=== PATIENT | male | born 1940 | race Caucasian/White ===

== ENCOUNTER 2025-04-21 21:43 | Inpatient (IN) | payer MEDICARE, OTHER, SELFPAY ==
[2025-04-21] VITALS (8 sets, daily range): BP systolic 112–159; BP diastolic 72–99; BMI 21.6
--- NOTE | 2025-04-21 17:04 | ED.GENMED ---
History of Present Illness
<Fili Light PA-C - Last Filed: 04/21/25 21:28>
General
Chief Complaint: Fall
Source: patient
Exam Limitations: none
Time Seen by Provider: 04/21/25 16:59
History of Present Illness
History of Present Illness:
83-year-old male with history of dementia presents via EMS from assisted living at [facility] after multiple falls recently. Report from ambulance states that there is concern on family's behalf he was not receiving appropriate
level of care. Patient cannot provide any valuable history given his dementia.
Phy Exam
<Fili Light PA-C - Last Filed: 04/21/25 21:28>
Physical Exam
Physical Exam:
General: Unkempt male no acute respiratory distress
HEENT normal cephalic no obvious scalp abrasion or hematoma
Heart: Regular rate and rhythm
Lungs: Clear no wheeze
Neurologic exam: Alert oriented to person only no facial asymmetry no obvious unilateral deficit
Musculoskeletal exam: The spine is nontender. There is a contusion noted to the lateral right hip without obvious deformity. He is tender to the right hip.
Skin is intact
Abdomen is soft nontender
Course
<ABIGAIL Jarvis Last Filed: 04/21/25 21:28>
Orders/Labs/Results
Orders:
Orders
04/21/25 17:04
CT Head W/o Iv Contrast Urgent
Comment:
Reason For Exam: falls
CR Hip - RT w/wo Pel 2-3 Vw* Urgent
Comment:
Reason For Exam: fall
Include a pelvis x-ray?: Yes
04/21/25 17:12
Complete Blood Count/With Diff Urgent
Comprehensive Metabolic Panel Urgent
04/21/25 17:13
Urinalysis Reflex To Culture Urgent
Date Specimen was Collected: 04/21/25
Time Specimen was Collected: 17:13
Urine Microscopic Reflex Cult Urgent
Urine Culture Urgent
RUY Source: U
Specimen Description:
Date Specimen was Collected: 04/21/25
Time Specimen was Collected: 17:13
04/21/25 17:53
CT Abd/pel Without Iv Or Oral Urgent
Comment:
Reason For Exam: sal, weakness
04/21/25 17:54
Electrocardiogram (*1) Urgent
Reason for Study: Fatigue / Weakness
EKG- Treatment ONCE
0.9% Sodium Chloride 1000 ml [Nss] 1,000 ml IV BOLUS
04/21/25 18:01
Calcium Gluconate 1,000 mg IV NOW STA
04/21/25 18:13
Sodium Zirconium Cyclosilicate [Lokelma] 10 gram PO NOW STA
04/21/25 19:21
CefTRIAXone [Rocephin] 1,000 mg IV NOW STA
04/21/25 19:41
Sterile Water [Sterile Water For Injection] 10 ml .ROUTE .[facility]-MED ONE
Abnormal Lab Results
04/21/25 04/21/25
17:12 17:13
RBC 4.14 L 10^6/uL
(4.70-6.10)
Hgb 12.3 L g/dL
(13.0-18.0)
MCV 98.3 H fL
(80.0-94.0)
MCHC 30.2 L g/dL
(33.0-37.0)
RDW 15.8 H %
(11.5-14.5)
MPV 10.9 H fL
(7.4-10.4)
Sodium 156 H mmol/L
(135-145)
Potassium 6.4 H* mmol/L
(3.5-5.1)
Chloride 123 H mmol/L
(98-107)
BUN 41 H mg/dl
(9-20)
Creatinine 3.4 H mg/dL
(0.7-1.3)
Glucose 115 H mg/dl
(70-99)
Calcium 10.3 H mg/dl
(8.4-10.2)
Alkaline Phosphatase 127 H U/L
(38-126)
Ur Occult Blood Reflex 3+ A
(Negative)
Leukocyte Esterase Rfl 3+ A
(Negative)
Urine RBC 7-10 A /HPF
(0-2)
Urine WBC (Reflex) >100 A /HPF
(0-5)
Urine Bacteria (Reflex) Many A
(Negative)
Urine Albumin (Reflex) 2+ A
(Neg - Trace)
04/21/25 17:12
04/21/25 17:12
Vital Signs
Initial and Last Documented VS:
Initial Vital Signs
Temp Pulse Resp BP Pulse Ox
97.8 F 77 18 143/86 99
04/21/25 16:46 04/21/25 16:46 04/21/25 16:46 04/21/25 16:46 04/21/25 16:46
Last Documented Vital Signs
Temp Pulse Resp BP Pulse Ox
97.7 F 95 21 139/99 98
04/21/25 19:12 04/21/25 21:11 04/21/25 21:11 04/21/25 21:10 04/21/25 18:00
<Emigdio Garcia, DO - Last Filed: 04/21/25 18:47>
Orders/Labs/Results
Orders:
Orders
04/21/25 17:04
CT Head W/o Iv Contrast Urgent
Comment:
Reason For Exam: falls
CR Hip - RT w/wo Pel 2-3 Vw* Urgent
Comment:
Reason For Exam: fall
Include a pelvis x-ray?: Yes
04/21/25 17:12
Complete Blood Count/With Diff Urgent
Comprehensive Metabolic Panel Urgent
04/21/25 17:13
Urinalysis Reflex To Culture Urgent
Date Specimen was Collected: 04/21/25
Time Specimen was Collected: 17:13
Urine Microscopic Reflex Cult Urgent
Urine Culture Urgent
RUY Source: U
Specimen Description:
Date Specimen was Collected: 04/21/25
Time Specimen was Collected: 17:13
04/21/25 17:53
CT Abd/pel Without Iv Or Oral Urgent
Comment:
Reason For Exam: sal, weakness
04/21/25 17:54
Electrocardiogram (*1) Urgent
Reason for Study: Fatigue / Weakness
EKG- Treatment ONCE
0.9% Sodium Chloride 1000 ml [Nss] 1,000 ml IV BOLUS
04/21/25 18:01
Calcium Gluconate 1,000 mg IV NOW STA
04/21/25 18:13
Sodium Zirconium Cyclosilicate [Lokelma] 10 gram PO NOW STA
04/21/25 19:21
CefTRIAXone [Rocephin] 1,000 mg IV NOW STA
04/21/25 19:41
Sterile Water [Sterile Water For Injection] 10 ml .ROUTE .[facility]
Abnormal Lab Results
04/21/25 04/21/25
17:12 17:13
RBC 4.14 L 10^6/uL
(4.70-6.10)
Hgb 12.3 L g/dL
(13.0-18.0)
MCV 98.3 H fL
(80.0-94.0)
MCHC 30.2 L g/dL
(33.0-37.0)
RDW 15.8 H %
(11.5-14.5)
MPV 10.9 H fL
(7.4-10.4)
Sodium 156 H mmol/L
(135-145)
Potassium 6.4 H* mmol/L
(3.5-5.1)
Chloride 123 H mmol/L
(98-107)
BUN 41 H mg/dl
(9-20)
Creatinine 3.4 H mg/dL
(0.7-1.3)
Glucose 115 H mg/dl
(70-99)
Calcium 10.3 H mg/dl
(8.4-10.2)
Alkaline Phosphatase 127 H U/L
(38-126)
Ur Occult Blood Reflex 3+ A
(Negative)
Leukocyte Esterase Rfl 3+ A
(Negative)
Urine RBC 7-10 A /HPF
(0-2)
Urine WBC (Reflex) >100 A /HPF
(0-5)
Urine Bacteria (Reflex) Many A
(Negative)
Urine Albumin (Reflex) 2+ A
(Neg - Trace)
04/21/25 17:12
04/21/25 17:12
Vital Signs
Initial and Last Documented VS:
Initial Vital Signs
Temp Pulse Resp BP Pulse Ox
97.8 F 77 18 143/86 99
04/21/25 16:46 04/21/25 16:46 04/21/25 16:46 04/21/25 16:46 04/21/25 16:46
Last Documented Vital Signs
Temp Pulse Resp BP Pulse Ox
97.7 F 95 21 139/99 98
04/21/25 19:12 04/21/25 21:11 04/21/25 21:11 04/21/25 21:10 04/21/25 18:00
<Fili Light PA-C - Last Filed: 04/21/25 21:28>
MDM/Problems Addressed
Differential Diagnosis Includes:
Patient with weakness and falls. Question general decline versus underlying infectious source such as UTI versus fracture from the falls or head injuries. CT of the head ordered. X-ray of right hip ordered will check labs and urinalysis
<Fili Light PA-C - Last Filed: 04/21/25 21:28>
*Pulse Oximetry
SaO2: 99
Oxygen Mode of Delivery: Room air
Patient hypoxic: no
*Critical Care Note
Total Time (30-74mins, 75-104mins- exclusive of procedures): Not Applicable
<Fili Light PA-C - Last Filed: 04/21/25 21:28>
Update Note
Update Note:
Workup shows multiple metabolic abnormalities including hyponatremia, hyperkalemia and acute kidney injury. I suspect patient is volume depleted and acute kidney injury could be prerenal. CT of the abdomen shows cystitis but no signs of
obstructive uropathy. CT of the head was negative. Fluids ordered. Urinalysis consistent with UTI, Rocephin ordered. Calcium and Lokelma ordered for hyperkalemia. Discussed with emergency room attending. Admit to hospital
ED Attending Note
<Fili Light PA-C - Last Filed: 04/21/25 21:28>
-
Portions of this chart may have been created with voice recognition software.� Occasional wrong word or��sound alike� substitutions may have occurred due to the inherent limitations of voice recognition software.
<Emigdio Garcia DO - Last Filed: 04/21/25 18:47>
ED Attending Note
Patient seen and examined by attending physician: Yes
I performed the substantive portion of visit, reviewed & personally made and approve the management plan that is documented in note by myself or FARIBA.: Yes
I performed a history and physical exam of patient and discussed management with resident, I reviewed resident's note and agree with documented findings and plan of care.: Yes
ED Attending Note:
84-year-old male brought to the ER by EMS for evaluation after frequent falls in his long-term care facility. Patient is pleasantly confused and unable to provide any relevant history. Vital signs reviewed, head is normocephalic atraumatic, mucous
membranes dry, moving all extremities symmetrically without focal deficit, abdomen is soft and nontender, GCS is 14 due to confusion. Nurses obtain straight cath urine sample and reported that he only had 100 cc in his bladder. IV fluids ordered.
IV calcium ordered given reported potassium on labs. Awaiting CT scan for admission for further care and treatment of SAL with severe dehydration
Discharge Plan
Departure
Patient Disposition: Admit
Date of Disposition: 04/21/25
Time of Disposition: 21:23
Presentation/result/management discussed w/ accepting MD/DO: Hospitalist
Patient with high blood pressure during this ER visit?: No
Discharge Problem:
Acute UTI, Acute hyperkalemia, SAL (acute kidney injury)
Prescriptions:
No Action
quetiapine 25 mg tablet
25 mg PO TID
buspirone 5 mg tablet
5 mg PO BID
acetaminophen 325 mg tablet
650 mg PO Q6HPRN PRN (Reason: fever)
ammonium lactate 12 % lotion
1 applic TOPICAL BID
Rx Instructions:
B/L arms and legs
loperamide 2 mg capsule
2 mg PO TID
sodium bicarbonate 325 mg tablet
325 mg PO BID
calcium carbonate 600 mg calcium (1,500 mg) tablet
600 mg PO BID
tamsulosin 0.4 mg capsule
0.4 mg PO DAILY
ferrous sulfate [FeroSul] 325 mg (65 mg iron) tablet
325 mg PO DAILY
sertraline 50 mg tablet
50 mg PO DAILY
metoprolol tartrate 25 mg tablet
25 mg PO BID
Visbiome 112.5 billion cell Capsule
1 cap PO DAILY
melatonin 5 mg Tablet
5 mg PO HS
Referrals:
Estephanie Aguilera DO [Family Provider, Family Practice]
Interventions
Interventions:
*Risk Screen - Suicide Last Done: 04/21/25 16:46
*General Assessment Last Done: 04/21/25 16:46
*Neglect/Abuse Screening Last Done: 04/21/25 16:46
*ED- Fall Risk Assessment Last Done: 04/21/25 16:46
*ED COVID-19 Vaccine History Last Done: 04/21/25 16:46
*ED Influenza Vaccine History Last Done: 04/21/25 16:46
ED-Musculoskeletal Assessment Last Done: 04/21/25 17:41
ED- Neurological Assessment Last Done: 04/21/25 19:12
ED-Skin Assessment Last Done: 04/21/25 19:12
Discharge Date and Time
Print Language: SAMMARINESE
[2025-04-21 17:23] LABS: Hematocrit 40.7 % (39.0-52.0); Hemoglobin 12.3 g/dL (13.0-18.0); Mean Corp Hgb Conc. 30.2 g/dL (33.0-37.0); Mean Corpuscular Volume 98.3 fL (80.0-94.0); Nucleated Red Blood Cells % 0 % (-); Platelet Count 263 10^3/uL (130-400); Red Cell Dist. Width 15.8 % (11.5-14.5)
[2025-04-21 17:38] LABS: Urine Character Cloudy (Clear)
[2025-04-21 17:49] LABS: ALT (SGPT) 23 U/L (0-50); AST (SGOT) 27 U/L (17-59); Albumin 3.8 g/dl (3.5-5.0); Alkaline Phosphatase 127 U/L (38-126); Blood Urea Nitrogen 41 mg/dl (9-20); Calcium 10.3 mg/dl (8.4-10.2); Carbon Dioxide 30 mmol/L (22-30); Chloride 123 mmol/L (98-107); Estimated Creatinine Clearance 14 ml/min; Glucose 115 mg/dl (70-99); Potassium 6.4 mmol/L (3.5-5.1); Sodium 156 mmol/L (135-145); Total Protein 7.3 g/dl (6.3-8.2); eGFR 17.09
[2025-04-21] MEDS: CALCIUM GLUCONATE 1000 MG IV (18:16)
[2025-04-21] MEDS: NSS 1000 IV (18:16)
[2025-04-21 18:29] LABS: Urine Squamous Cell 0-2 /LPF (Few); Urine White Cell >100 /HPF (0-5)
[2025-04-21] MEDS: LOKELMA 10 GRAM PO (18:31)
[2025-04-21] MEDS: ROCEPHIN 1000 MG IV (19:44)
--- NOTE | 2025-04-21 21:41 | HPS.HSE ---
Addendum entered and electronically signed by Kenzie Reyna MD 04/21/25 23:13:
HPI
84-year-old male past medical history of Alzheimer's dementia, anxiety, hypertension, suspected CKD anemia of chronic disease, presenting from assisted living at [place] in [facility] after multiple falls recently. There is concern from family
that he was not receiving appropriate level of care. History cannot be obtained from patient due to dementia. He denies pain.
Addendum entered and electronically signed by Kenzie Reyna MD 04/21/25 22:25:
Repeat BMP shows Sodium of 156 again so changed fluids to 1/2 NS.
Addendum entered and electronically signed by Kenzie Reyna MD 04/21/25 21:46:
EKG shows QTc of 579. Hold Seroquel, buspirone, sertraline. Recheck EKG in the morning.
Original Note:
Family Physician
-
Family Physician: Estephanie Aguilera
Chief Complaint
-
falls
History of Present Illness
Allergies
Allergy/AdvReac Type Severity Reaction Status Date / Time
No Known Allergies Allergy Unverified 04/21/25 18:08
Home Medications
Lactobac no.2-Bifidobac no.1-S. thermo 112.5 billion cell capsule (Visbiome) 1 cap PO DAILY 04/21/25
acetaminophen 325 mg tablet 650 mg PO Q6HPRN PRN fever 04/21/25
ammonium lactate 12 % lotion 1 applic topical BID dry skin 04/21/25
buspirone 5 mg tablet 5 mg PO BID 04/21/25
calcium carbonate 600 mg PO BID 04/21/25
ferrous sulfate 325 mg (65 mg iron) tablet (FeroSul) 325 mg PO DAILY 04/21/25
loperamide 2 mg capsule 2 mg PO TID 04/21/25
melatonin 5 mg tablet 5 mg PO HS 04/21/25
metoprolol tartrate 25 mg tablet 25 mg PO BID 04/21/25
quetiapine 25 mg tablet 25 mg PO TID 04/21/25
sertraline 50 mg tablet 50 mg PO DAILY 04/21/25
sodium bicarbonate 325 mg tablet 325 mg PO BID 04/21/25
tamsulosin 0.4 mg capsule 0.4 mg PO DAILY 04/21/25
Medical History
Past Medical History
Past Medical History: Reports Other (84-year-old male past medical history of Alzheimer's dementia, anxiety, hypertension, suspected CKD anemia of chronic disease, presenting from assisted living at [place] in [facility] after multiple falls
recently. There is concern from family that he was not receiving appropriate level of care)
Past Surgical History: Reports None
Social History
Unable to obtain full social history at this time due to: Dementia
Family History
Family History: Not pertinent
Allergies / Home Medications
Allergies reflects when Allergies were last updated in [employer].
Home Medications with original date entered in [employer]
Allergy/Medication List:
Allergies
Allergy/AdvReac Type Severity Reaction Status Date / Time
No Known Allergies Allergy Unverified 04/21/25 18:08
Home Medications
Lactobac no.2-Bifidobac no.1-S. thermo 112.5 billion cell capsule (Visbiome) 1 cap PO DAILY 04/21/25
acetaminophen 325 mg tablet 650 mg PO Q6HPRN PRN fever 04/21/25
ammonium lactate 12 % lotion 1 applic topical BID dry skin 04/21/25
buspirone 5 mg tablet 5 mg PO BID 04/21/25
calcium carbonate 600 mg PO BID 04/21/25
ferrous sulfate 325 mg (65 mg iron) tablet (FeroSul) 325 mg PO DAILY 04/21/25
loperamide 2 mg capsule 2 mg PO TID 04/21/25
melatonin 5 mg tablet 5 mg PO HS 04/21/25
metoprolol tartrate 25 mg tablet 25 mg PO BID 04/21/25
quetiapine 25 mg tablet 25 mg PO TID 04/21/25
sertraline 50 mg tablet 50 mg PO DAILY 04/21/25
sodium bicarbonate 325 mg tablet 325 mg PO BID 04/21/25
tamsulosin 0.4 mg capsule 0.4 mg PO DAILY 04/21/25
Review of Systems
-
History Source: Patient
A 12 point ROS was completed and negative except as noted: No
Physical Exam
Vital Signs
Vital Signs
Temp Pulse Resp BP Pulse Ox
97.7 F 95 21 139/99 98
04/21/25 19:12 04/21/25 21:11 04/21/25 21:11 04/21/25 21:10 04/21/25 18:00
Physical Exam
General: Well Developed, Well Nourished and No Apparent Distress
HEENT: NormoCephalic, Moist mucous membranes and Atraumatic
Respiratory: Clear
Cardiac: S1/S2 and Regular Rhythm; No Murmur or Rub
GI: Soft, Non Tender, Non Distended and Normal Bowel Sounds; No Organomegaly
Rectal: Deferred by Provider
Musculoskeletal: No Clubbing, No Cyanosis and No Edema
Skin: No Rash
Neuro: Nonfocal/grossly intact
Laboratory Results
-
04/21/25 17:12
Laboratory Results
Total Bilirubin 0.6 mg/dl (0.2-1.3) 04/21/25 17:12
AST 27 U/L (17-59) 04/21/25 17:12
ALT 23 U/L (0-50) 04/21/25 17:12
Alkaline Phosphatase 127 U/L (38-126) H 04/21/25 17:12
Data Reviewed
-
Lab Data: Labs Reviewed by me
Old Records: Reviewed
Impression/Plan
-
IMPRESSION:
PLAN:
# DEEDEE likely prerenal on suspected CKD
# Severe hyperkalemia
-EKG shows no abnormalities
-CT head preliminary report shows no acute abnormality
-CT abdomen pelvis preliminary radiology report shows urinary bladder wall thickening, bilateral perinephric inflammatory changes, no obstructive urolithiasis, multiple calcified gallstone
- IV fluids
- Calcium gluconate, Lokelma given
-Recheck BMP
- Continue sodium bicarb
- Bladder scan protocol
# Hypernatremia secondary to hypovolemia
-IV fluids with normal saline for now
# Mild hypercalcemia secondary to hypovolemia
- IV fluids
# Urinary tract infection
-Urinalysis strongly suggesting infection
- Ceftriaxone
# Ambulatory dysfunction/multiple falls
# Right hip tenderness
- Hip x-ray due to right hip tenderness and CT head pending
Dementia
- Continue sertraline, Seroquel, buspirone
Anxiety
- Continue sertraline, Seroquel
Essential hypertension
- Continue metoprolol
BPH
- Continue tamsulosin
Full code
DVT prophylaxis�heparin
Regular diet
[2025-04-21 22:14] LABS: Blood Urea Nitrogen 40 mg/dl (9-20); Calcium 9.9 mg/dl (8.4-10.2); Carbon Dioxide 27 mmol/L (22-30); Chloride 125 mmol/L (98-107); Estimated Creatinine Clearance 16 ml/min; Glucose 109 mg/dl (70-99); Potassium 5.4 mmol/L (3.5-5.1); Sodium 156 mmol/L (135-145); eGFR 19.86
[2025-04-22] VITALS (7 sets, daily range): BP systolic 105–149; BP diastolic 54–86; BMI 18.8
--- NOTE | 2025-04-22 00:30 | PTCARENOTE ---
Pt. admitted from E.D., awake, alert, confused, combative, vs stable, NSR on monitor, bed alarm intact, call rivera within reach.
[2025-04-22] MEDS: 0.45%NACL 1000 IV ×3 (00:33→21:11)
[2025-04-22] MEDS: FLUSH (NSS) 1 FLUSH IV (00:33)
[2025-04-22] MEDS: IMODIUM PO ×2 (01:37→18:15)
[2025-04-22] MEDS: MELATONIN PO (01:37)
[2025-04-22] MEDS: MELATONIN 5 MG PO ×2 (02:48→21:14)
--- NOTE | 2025-04-22 06:00 | PTCARENOTE ---
Staff attempted to do EKG on pt, pt. was combative, kicking and scratching staff, unsuccessful with attempt.
[2025-04-22] MEDS: LAC HYDRIN, AM LACTIN LOTION 1 APPLIC TOPICAL ×2 (08:52→21:12)
[2025-04-22] MEDS: HEPARIN 5000 UNITS SC ×2 (08:54→21:11)
[2025-04-22] MEDS: IMODIUM 2 MG PO ×2 (08:55→21:14)
[2025-04-22] MEDS: FEOSOL 325 MG PO (08:55)
[2025-04-22] MEDS: FLOMAX 0.4 MG PO (08:55)
[2025-04-22] MEDS: LOPRESSOR 25 MG PO ×2 (08:55→21:13)
[2025-04-22] MEDS: VISBIOME 1 CAP PO (08:55)
[2025-04-22] MEDS: OSCAL CAL 500 500 MG PO ×2 (08:55→21:13)
[2025-04-22] MEDS: SODIUM BICARBONATE 325 MG PO ×2 (08:56→21:14)
[2025-04-22 09:07] LABS: Hematocrit 39.6 % (39.0-52.0); Hemoglobin 11.8 g/dL (13.0-18.0); Mean Corp Hgb Conc. 29.8 g/dL (33.0-37.0); Mean Corpuscular Volume 100.3 fL (80.0-94.0); Nucleated Red Blood Cells % 0 % (-); Platelet Count 228 10^3/uL (130-400); Red Cell Dist. Width 15.5 % (11.5-14.5)
[2025-04-22 09:41] LABS: ALT (SGPT) 20 U/L (0-50); AST (SGOT) 24 U/L (17-59); Albumin 3.2 g/dl (3.5-5.0); Alkaline Phosphatase 113 U/L (38-126); Blood Urea Nitrogen 37 mg/dl (9-20); Calcium 9.4 mg/dl (8.4-10.2); Carbon Dioxide 26 mmol/L (22-30); Chloride 125 mmol/L (98-107); Estimated Creatinine Clearance 15 ml/min; Glucose 99 mg/dl (70-99); Potassium 4.9 mmol/L (3.5-5.1); Sodium 157 mmol/L (135-145); Total Protein 6.5 g/dl (6.3-8.2); eGFR 19.09
--- NOTE | 2025-04-22 09:41 | W.PN.HOSP.TC ---
Addendum entered and electronically signed by Derrick Mota MD 04/22/25 14:29:
Acute urinary retention -bladder scan reported to be 515ml, straight cath for 400 mL. Harris catheter order placed.
Addendum entered and electronically signed by Derrick Mota MD 04/22/25 14:18:
I saw and evaluated the patient. I reviewed the resident�s note and agree with findings and plan as documented in the resident�s note.
1. Acute kidney injury -baseline unknown. Creatinine of 3. Likely prerenal as patient volume depletion. CT abdomen pelvis showing bladder wall thickening/trabeculation with question of bladder outlet obstruction. Bladder scan and straight cath
protocol ordered. Discussed with RN for a random bladder scan to rule out any ongoing active urinary retention. Avoid nephrotoxic medication as possible.
2. Hypernatremia -secondary to decreased oral intake with dementia. Currently on 0.45% NS at rate of 100 mL/h, sodium did not improve overnight. Increase rate to 150 mL/h. Follow-up sodium in evening
3. Hyperkalemia -secondary to DEEDEE/acidosis related. Admission potassium 6.4. Came down to 4.9 today. Improved.
4. UTI/pyelonephritis -UA showing significant pyuria bacteriuria. Urine culture pending. No leukocytosis patient afebrile. CT abdomen pelvis questioning bilateral perinephric fat stranding, possible pyelonephritis. Currently on Rocephin continue
5. Acute metabolic encephalopathy -likely from hypernatremia. UTI possibly causing some encephalopathy as well, although if patient mentation improved rapidly after correction of hypernatremia UTI becomes less likely a causative agent.
Total time spent : 55 mins
Original Note:
Today's Communication/Plan
-
Half normal saline at increased rate 1 550 mL/h, since serum sodium has not decreased yet.
Urine culture pending
Bladder scan pending
Assessment / Plan
Assessment / Plan
IMPRESSION:
Mr. Peña Fontanez is a 84-year-old male with PMH notable for Alzheimer's dementia, anxiety, hypertension, suspected CKD, anemia of chronic disease, who presented from [facility] after multiple falls recently. Family was
concerned that he was not receiving appropriate level of care. History cannot be obtained from patient due to dementia. He denies pain.
CT abdomen pelvis noncontrast:
Urinary bladder is distended. Diffusely thickened and trabeculated wall. This would suggest bladder outlet obstruction and/or cystitis.
Stranding of the perinephric fat bilaterally, nonspecific but raising the possibility of ascending urinary tract infection. Bilateral cystic renal masses, probably benign cystic masses.
Mild dilation of the distal ureters bilaterally. Mild dilation of the left renal pelvis and calyces. No evidence for ureteral calculus.
Thickening of the wall the rectum with stranding of the perirectal fat, findings suggestive of proctitis, possibly stercoral proctitis. No evidence for perforation. No evidence for bowel obstruction or free intraperitoneal air.
Cholelithiasis. No CT findings to suggest acute cholecystitis.
Mild dilation of the right common iliac artery, with diameter of 15.2 mm.
Examination limited by motion artifact, especially involving the lower chest and upper abdomen. Bony degenerative changes as described.
PLAN:
# DEEDEE�likely prerenal on suspected CKD
# Hypernatremia secondary to hypovolemia
EKG shows no abnormalities
Creatinine 3.4 on admission. Downtrended to 3.1 on 04/22/25. Baseline creatinine unknown as no prior labs in this EMR
CT head negative
CT A/P noncontrast: Thickened and trabeculated bladder suggesting outlet obstruction or cystitis. Perinephric fat stranding, possibly ascending UTI. Perirectal fat stranding suggesting proctitis, possibly stercoral. Cholelithiasis
- Hypotonic 1/2 (0.45%) saline at increased rate to 150 mL/h, since sodium has not decreased yet
- Bladder scan protocol, given thickened/trabeculated bladder suggesting outlet obstruction
# Urinary tract infection
UTI on urinalysis. Urine culture pending
- Ceftriaxone 1000 mg IV every 24 hours 04/21/2025�
# Severe hyperkalemia�resolved
Potassium 5.7 on admission
- Calcium gluconate, Lokelma given
Potassium decreased to 4.9
� Continue to monitor
� Continue sodium bicarb 325 mg p.o. twice daily for metabolic acidosis and hyperkalemia
# Ambulatory dysfunction/multiple falls
# Right hip tenderness
Right hip x-ray negative for acute fracture or dislocation
CT head: No evidence of acute intracranial abnormality
� PT OT screening
# Mild hypercalcemia secondary to hypovolemia�resolved
- IV fluids
Essential hypertension
- Continue metoprolol
BPH
- Continue tamsulosin
Dementia and anxiety
- Continue sertraline, Seroquel, buspirone
Full code
DVT prophylaxis�heparin
Regular diet
Anticipated Discharge: > 48 hours
Subjective/Interval History
-
Date of Service: April 22, 2025
No acute events overnight. Patient not engaging in conversation.
Objective Data
-
Labs:
Lab Results
04/21/25 04/21/25 04/21/25
17:12 17:13 21:51
WBC 7.1
RBC 4.14 L
Hgb 12.3 L
Hct 40.7
MCV 98.3 H
MCH 29.7
MCHC 30.2 L
RDW 15.8 H
Plt Count 263
MPV 10.9 H
Abs Immat Gran (auto) 0.0
Absolute Neuts (auto) 4.6
Absolute Lymphs (auto) 1.7
Absolute Monos (auto) 0.5
Absolute Eos (auto) 0.2
Absolute Basos (auto) 0.1
Immature Gran % 0.3
Neutrophils % 64.2
Lymphocytes % 23.7
Monocytes % 7.6
Eosinophils % 3.4
Basophils % 0.8
Nucleated RBC % 0
Sodium 156 H 156 H
Potassium 6.4 H* 5.4 H
Chloride 123 H 125 H
Carbon Dioxide 30 27
BUN 41 H 40 H
Creatinine 3.4 H 3.0 H
Estimated Creat Clear 14 16
eGFR 17.09 19.86
Glucose 115 H 109 H
Calcium 10.3 H 9.9
Total Bilirubin 0.6
AST 27
ALT 23
Alkaline Phosphatase 127 H
Total Protein 7.3
Albumin 3.8
Urine Color Yellow
Urine Clarity Cloudy
Urine pH 7.0
Ur Specific [place] 1.005
Urine Ketones Negative
Ur Occult Blood Reflex 3+ A
Urine Nitrite (Reflex) Negative
Urine Bilirubin Negative
Urine Urobilinogen Negative
Leukocyte Esterase Rfl 3+ A
Urine RBC 7-10 A
Urine WBC (Reflex) >100 A
Ur Squamous Epith Cells 0-2
Urine Bacteria (Reflex) Many A
Urine Glucose Negative
Urine Albumin (Reflex) 2+ A
04/22/25
08:22
WBC 7.0
RBC 3.95 L
Hgb 11.8 L
Hct 39.6
MCV 100.3 H
MCH 29.9
MCHC 29.8 L
RDW 15.5 H
Plt Count 228
MPV 11.3 H
Abs Immat Gran (auto) 0.0
Absolute Neuts (auto) 5.3
Absolute Lymphs (auto) 0.9 L
Absolute Monos (auto) 0.4
Absolute Eos (auto) 0.3
Absolute Basos (auto) 0.1
Immature Gran % 0.4
Neutrophils % 75.5 H
Lymphocytes % 12.5 L
Monocytes % 6.3
Eosinophils % 4.3
Basophils % 1.0
Nucleated RBC % 0
Sodium 157 H
Potassium 4.9
Chloride 125 H
Carbon Dioxide 26
BUN 37 H
Creatinine 3.1 H
Estimated Creat Clear 15
eGFR 19.09
Glucose 99
Calcium 9.4
Total Bilirubin 0.5
AST 24
ALT 20
Alkaline Phosphatase 113
Total Protein 6.5
Albumin 3.2 L
Urine Color
Urine Clarity
Urine pH
Ur Specific [place]
Urine Ketones
Ur Occult Blood Reflex
Urine Nitrite (Reflex)
Urine Bilirubin
Urine Urobilinogen
Leukocyte Esterase Rfl
Urine RBC
Urine WBC (Reflex)
Ur Squamous Epith Cells
Urine Bacteria (Reflex)
Urine Glucose
Urine Albumin (Reflex)
Vital Signs:
Vital Signs
Temp Pulse Resp BP Pulse Ox
97.3 F 87 20 149/81 96
04/22/25 07:10 04/22/25 07:10 04/22/25 07:10 04/22/25 08:55 04/22/25 07:10
Review of Systems
-
Unable to obtain full review of systems at this time due to: Dementia
History Source: Patient
Physical Exam
-
General: Comfortable
HEENT: Normocephalic, Atraumatic, Nose Appears Normal and Ears Appear Normal; Negative Moist Mucous Membranes (Lips with blue spots)
Respiratory: Clear to Auscultation
Cardiac: Regular Rhythm and S1/S2
GI: Soft, Nontender, Nondistended and Normal Bowel Sounds
Skin: Warm and Dry
Neuro: Awake
Psych: Calm
--- NOTE | 2025-04-22 15:21 | CM ---
supplier development manager reviewed patient's chart and met with patient and patient is confused, patient with Alzheimer's dementia, window caser reached out to patient's daughter however there was no answer, call placement to [facility] in [place] and window caser spoke with nurse Chaudhary, according to the nurse at [facility] patient has only been at their facility for one month, patient was very active, patient was supposed to use walker or w/c at facility however patient
was not using ambulatory devices.
PCP: Dr. Estephanie Aguilera
Pharmacy: [facility]
[2025-04-22] MEDS: ROCEPHIN 1000 MG IV (21:13)
[2025-04-22] MEDS: STERILE WATER FOR INJECTION 10 ML IV (21:13)
[2025-04-23 00:27] LABS: Blood Urea Nitrogen 34 mg/dl (9-20); Calcium 8.9 mg/dl (8.4-10.2); Carbon Dioxide 26 mmol/L (22-30); Chloride 124 mmol/L (98-107); Estimated Creatinine Clearance 17 ml/min; Glucose 103 mg/dl (70-99); Potassium 4.5 mmol/L (3.5-5.1); Sodium 157 mmol/L (135-145); eGFR 21.57
[2025-04-23] MEDS: MELATONIN 3 MG PO (02:12)
[2025-04-23 03:18] VITALS: BP 154/73
[2025-04-23] MEDS: 0.45%NACL 1000 IV (04:27)
--- NOTE | 2025-04-23 06:06 | PTCARENOTE ---
Pt restless in room talking to self through most of night. RELIGION DEPARTMENT CHAIR ordered one time additional 3mg melatonin PO to standing 5mg melatonin PO HS. Additional dose did not help.
[2025-04-23 07:30] VITALS: BP 122/66
--- NOTE | 2025-04-23 07:33 | W.PN.HOSP.TC ---
Addendum entered and electronically signed by Selin Levin MD 04/23/25 15:46:
I saw and evaluated the patient independently. I reviewed and discussed the resident�s note and agree with findings and plan as documented by Dr. Peter.
GENERAL: cachectic male in no apparent distress--pleasant
HEENT: NC/AT
HEART: regular rate and rhythm, +S1, +S2
LUNGS : clear to auscultation bilaterally
ABDOM: soft, nontender, nondistended, + bowel sounds
EXT: no cyanosis, clubbing, or edema
NEUROLOGIC: appears demented
: harvey cath with clear urine
DEEDEE-�likely prerenal on suspected CKD with some element of post renal requiring harvey cath--creat 3.4 on admission--improving to 2.8 but baseline creat unknown--CT scan abdomen/pelvis without contrast shows Thickened and trabeculated bladder
suggesting outlet obstruction or cystitis. Perinephric fat stranding, possibly ascending UTI--harvey placed--urine culture pending--cont rocephin for now (started 04/22)
Hypernatremia secondary to hypovolemia--free water deficit on admission is 3.6L--agree with hypotonic saline and change to D5W with follow up labs--agree with renal consult--follow sodium
Severe hyperkalemia�resolved--no EKG changes on admission--s/p calcium gluconate, lokelma--resolved--pt on sodium bicarbonate as outpt to help with metabolic acidosis
Ambulatory dysfunction/multiple falls with Right hip tenderness--x-ray negative--head CT neg--PT/OT
Mild hypercalcemia secondary to hypovolemia�resolved-- IV fluids
Essential hypertension- Continue metoprolol
BPH- Continue tamsulosin
Dementia and anxiety-- Restarted sertraline, Seroquel, buspirone as patient seemed delirious and not sleeping
code status--Full code
DVT proph-�sc heparin
Original Note:
Today's Communication/Plan
-
Na remained at 157 last night and decreased to 153 this morning. Switched from 1/2 NSS 150 ml/hr to D5w 100 ml/hr. Nephrology consulted.
Restart sertraline, Seroquel, buspirone as patient seemed delirious and not sleeping.
Assessment / Plan
Assessment / Plan
IMPRESSION:
Mr. Peña Fontanez is a 84-year-old male with PMH notable for Alzheimer's dementia, anxiety, hypertension, suspected CKD, anemia of chronic disease, who presented from [facility] [place] multiple falls recently. Family was
concerned that he was not receiving appropriate level of care. History cannot be obtained from patient due to dementia. He denies pain.
CT abdomen pelvis noncontrast:
Urinary bladder is distended. Diffusely thickened and trabeculated wall. This would suggest bladder outlet obstruction and/or cystitis.
Stranding of the perinephric fat bilaterally, nonspecific but raising the possibility of ascending urinary tract infection. Bilateral cystic renal masses, probably benign cystic masses.
Mild dilation of the distal ureters bilaterally. Mild dilation of the left renal pelvis and calyces. No evidence for ureteral calculus.
Thickening of the wall the rectum with stranding of the perirectal fat, findings suggestive of proctitis, possibly stercoral proctitis. No evidence for perforation. No evidence for bowel obstruction or free intraperitoneal air.
Cholelithiasis. No CT findings to suggest acute cholecystitis.
Mild dilation of the right common iliac artery, with diameter of 15.2 mm.
Examination limited by motion artifact, especially involving the lower chest and upper abdomen. Bony degenerative changes as described.
PLAN:
# DEEDEE�likely prerenal on suspected CKD
# Hypernatremia secondary to hypovolemia
EKG shows no abnormalities
Creatinine 3.4 on admission. Downtrended to 3.1 on 04/22/25. Baseline creatinine unknown as no prior labs in this EMR
CT A/P noncontrast: Thickened and trabeculated bladder suggesting outlet obstruction or cystitis. Perinephric fat stranding, possibly ascending UTI. Perirectal fat stranding suggesting proctitis, possibly stercoral. Cholelithiasis
Bladder scan protocol 515, 400 straight-cathed. Harvey placed
Calculated 3.6L free water deficit on admission
- Hypotonic 1/2 (0.45%) saline at increased rate to 150 mL/h, since sodium has not decreased. Switched to D5W at 100 mL/h on 04/23/2025
- Monitor Na for goal correction rate of 10 (<12) mEq per 24 hours
Nephrology consulted
# Urinary tract infection
UTI on urinalysis. Urine culture pending
- Ceftriaxone 1000 mg IV every 24 hours 04/21/2025�
# Severe hyperkalemia�resolved
Potassium 5.7 on admission
- Calcium gluconate, Lokelma given
Potassium decreased to 4.9
� Continue to monitor
� Continue sodium bicarb 325 mg p.o. twice daily for metabolic acidosis and hyperkalemia
# Ambulatory dysfunction/multiple falls
# Right hip tenderness
Right hip x-ray negative for acute fracture or dislocation
CT head: No evidence of acute intracranial abnormality
� PT/OT: pending
# Mild hypercalcemia secondary to hypovolemia�resolved
- IV fluids
Essential hypertension
- Continue metoprolol
BPH
- Continue tamsulosin
Dementia and anxiety
- Restarted sertraline, Seroquel, buspirone as patient seemed delirious and not sleeping
Full code
DVT prophylaxis�heparin
Regular diet
Dispo: Patient came from [place]
Will speak with family to provide updates
Anticipated Discharge: > 48 hours
Subjective/Interval History
-
Date of Service: April 23, 2025
No acute events overnight. Patient was attempting to pull out his Harvey catheter yesterday, and was not able to sleep well. This morning, he was responding to questions and stay on topic, but he seemed a bit delirious or perhaps speaking with
dissociation was his baseline with dementia. He was lying on a diagonal, with his head on the hard rail, so the nurse and I repositioned him.
Objective Data
-
Labs:
Microbiology Results - Entire Visit
04/21/25 17:13 Urine Urine Culture - Preliminary
Hematology and Coagulation - Last 24 hours
04/23/25 Range/Units
08:42
WBC 6.0 (4.8-10.8) 10^3/uL
RBC 3.68 L (4.70-6.10) 10^6/uL
Hgb 11.0 L (13.0-18.0) g/dL
Hct 36.6 L (39.0-52.0) %
MCV 99.5 H (80.0-94.0) fL
MCH 29.9 (27.0-31.0) pg
MCHC 30.1 L (33.0-37.0) g/dL
RDW 15.4 H (11.5-14.5) %
Plt Count 199 (130-400) 10^3/uL
MPV 11.0 H (7.4-10.4) fL
Blood Gas and Chemistry - Last 24 hours
04/22/25 04/23/25 04/23/25 Range/Units
23:53 08:42 22:00
Sodium 157 H 153 H Pending (135-145) mmol/L
Potassium 4.5 4.3 Pending (3.5-5.1) mmol/L
Chloride 124 H 121 H Pending (98-107) mmol/L
Carbon Dioxide 26 25 Pending (22-30) mmol/L
BUN 34 H 32 H Pending (9-20) mg/dl
Creatinine 2.8 H 2.8 H Pending (0.7-1.3) mg/dL
Estimated Creat Clear 17 17 ml/min
eGFR 21.57 21.57
Glucose 103 H 84 Pending (70-99) mg/dl
Calcium 8.9 8.6 Pending (8.4-10.2) mg/dl
Vital Signs:
Vital Signs
Temp Pulse Resp BP Pulse Ox
97.5 F 70 16 154/73 97
04/23/25 03:18 04/23/25 03:18 04/23/25 03:18 04/23/25 03:18 04/23/25 03:18
I&O
04/22/25 04/23/25 04/24/25
05:59 06:59 06:59
Intake Total 2240 / 2240
Output Total 1325 / 1325
Balance 915 / 915
Review of Systems
-
Unable to obtain full review of systems at this time due to: Dementia
History Source: Patient
Physical Exam
-
General: Well Developed, Well Nourished, No Apparent Distress, Comfortable and Conversant
HEENT: Normocephalic, Atraumatic, Anicteric, Nose Appears Normal and Ears Appear Normal
Respiratory: Clear to Auscultation
Cardiac: Regular Rhythm and S1/S2
GI: Soft, Nontender, Nondistended and Normal Bowel Sounds
Musculoskeletal: No Clubbing, No Cyanosis and No Edema
Skin: Warm, Dry and Other (Ecchymoses on lower legs)
Neuro: Awake and Alert
Psych: Calm
[2025-04-23] MEDS: 0.45%NACL IV (08:52)
[2025-04-23] MEDS: D5W 1000 IV ×2 (09:16→18:21)
[2025-04-23 09:17] LABS: Hematocrit 36.6 % (39.0-52.0); Hemoglobin 11.0 g/dL (13.0-18.0); Mean Corp Hgb Conc. 30.1 g/dL (33.0-37.0); Mean Corpuscular Volume 99.5 fL (80.0-94.0); Platelet Count 199 10^3/uL (130-400); Red Cell Dist. Width 15.4 % (11.5-14.5)
[2025-04-23] MEDS: OSCAL CAL 500 500 MG PO ×2 (09:22→20:14)
[2025-04-23] MEDS: VISBIOME 1 CAP PO (09:22)
[2025-04-23] MEDS: LOPRESSOR 25 MG PO ×2 (09:22→20:11)
[2025-04-23] MEDS: IMODIUM 2 MG PO ×3 (09:22→22:21)
[2025-04-23] MEDS: FLOMAX 0.4 MG PO (09:22)
[2025-04-23] MEDS: HEPARIN 5000 UNITS SC ×2 (09:23→20:11)
[2025-04-23] MEDS: FEOSOL 325 MG PO (09:23)
[2025-04-23] MEDS: SODIUM BICARBONATE 325 MG PO ×2 (09:25→20:14)
[2025-04-23] MEDS: LAC HYDRIN, AM LACTIN LOTION 1 APPLIC TOPICAL ×2 (09:25→20:14)
[2025-04-23 09:54] LABS: Blood Urea Nitrogen 32 mg/dl (9-20); Calcium 8.6 mg/dl (8.4-10.2); Carbon Dioxide 25 mmol/L (22-30); Chloride 121 mmol/L (98-107); Estimated Creatinine Clearance 17 ml/min; Glucose 84 mg/dl (70-99); Potassium 4.3 mmol/L (3.5-5.1); Sodium 153 mmol/L (135-145); eGFR 21.57
[2025-04-23 11:30] VITALS: BP 96/68
[2025-04-23] MEDS: ZOLOFT 50 MG PO (12:46)
[2025-04-23] MEDS: BUSPAR 5 MG PO ×2 (12:46→20:11)
--- NOTE | 2025-04-23 15:18 | CM ---
Patient seen at bedside with physicians on . patient from [place] and pending therapy assessment. CM will continue to follow for discharge planning needs.
Plan; return to [facility] pending therapy assessment
[2025-04-23 15:30] VITALS: BP 100/72
[2025-04-23] MEDS: SEROQUEL 25 MG PO ×2 (16:18→22:21)
[2025-04-23] MEDS: STERILE WATER FOR INJECTION 10 ML IV (20:14)
[2025-04-23] MEDS: ROCEPHIN 1000 MG IV (20:14)
[2025-04-23] MEDS: MELATONIN 5 MG PO (22:21)
[2025-04-23 23:27] LABS: Blood Urea Nitrogen 28 mg/dl (9-20); Calcium 8.1 mg/dl (8.4-10.2); Carbon Dioxide 26 mmol/L (22-30); Chloride 111 mmol/L (98-107); Estimated Creatinine Clearance 19 ml/min; Glucose 107 mg/dl (70-99); Potassium 4.1 mmol/L (3.5-5.1); Sodium 137 mmol/L (135-145); eGFR 25.96
[2025-04-24 00:12] VITALS: BP 123/62
[2025-04-24] MEDS: D5W 1000 IV (04:28)
[2025-04-24 07:40] VITALS: BP 132/108
[2025-04-24 08:41] VITALS: PULSE 86; O2SAT 97
[2025-04-24 09:09] LABS: Hematocrit 35.6 % (39.0-52.0); Hemoglobin 10.7 g/dL (13.0-18.0); Mean Corp Hgb Conc. 30.1 g/dL (33.0-37.0); Mean Corpuscular Volume 95.7 fL (80.0-94.0); Platelet Count 191 10^3/uL (130-400); Red Cell Dist. Width 14.8 % (11.5-14.5)
--- NOTE | 2025-04-24 09:09 | W.PN.HOSP.TC ---
Addendum entered and electronically signed by Selin Levin MD 04/24/25 16:03:
I saw and evaluated the patient independently. I reviewed and discussed the resident�s note and agree with findings and plan as documented by Dr. Peter.
GENERAL: cachectic male in no apparent distress--pleasant
HEENT: NC/AT
HEART: regular rate and rhythm, +S1, +S2
LUNGS : clear to auscultation bilaterally
ABDOM: soft, nontender, nondistended, + bowel sounds
EXT: no cyanosis, clubbing, or edema
NEUROLOGIC: appears demented
: harvey cath with clear urine
DEEDEE-�likely prerenal on suspected CKD with some element of post renal requiring harvey cath--creat 3.4 on admission--improving to 2.3 but baseline creat unknown--CT scan abdomen/pelvis without contrast shows Thickened and trabeculated bladder
suggesting outlet obstruction or cystitis. Perinephric fat stranding, possibly ascending UTI--harvey placed--urine culture with Enterococcus and Aerococcus, rocephin changed to Ampicillin on 04/24 (abx started 04/22)
Hypernatremia secondary to hypovolemia--improved--apprec renal consult--follow sodium--change IVF to NSS
Severe hyperkalemia�resolved--no EKG changes on admission--s/p calcium gluconate, lokelma--resolved--pt on sodium bicarbonate as outpt to help with metabolic acidosis
Ambulatory dysfunction/multiple falls with Right hip tenderness--x-ray negative--head CT neg--PT/OT
Mild hypercalcemia secondary to hypovolemia�resolved-- IV fluids
Essential hypertension- Continue metoprolol
BPH- Continue tamsulosin
Dementia and anxiety-- Restarted sertraline, Seroquel, buspirone as patient seemed delirious and not sleeping
code status--Full code
DVT proph-�sc heparin
Dr. Peter and Mary Conn () spoke with daughter, gave clinical update and spoke about d/c plans
Original Note:
Today's Communication/Plan
-
Discontinued hypotonic fluids now that sodium is normal. Started isotonic fluids since creatinine is elevated and patient has not been eating his meals (sleeping).
Spoke with patient's daughter Lucy who is the POA. She stated a strong preference for [facility]. Encouraged her to pick a back up SNF.
Started erythromycin eyedrops 3 times daily for yellow eye discharge, crusting, hyperemia.
Assessment / Plan
Assessment / Plan
IMPRESSION:
Mr. Peña Fontanez is a 84-year-old male with PMH notable for Alzheimer's dementia, anxiety, hypertension, suspected CKD, anemia of chronic disease, who presented from [facility] [place] after multiple falls recently. Family was
concerned that he was not receiving appropriate level of care. History cannot be obtained from patient due to dementia. He denies pain.
CT abdomen pelvis noncontrast:
Urinary bladder is distended. Diffusely thickened and trabeculated wall. This would suggest bladder outlet obstruction and/or cystitis.
Stranding of the perinephric fat bilaterally, nonspecific but raising the possibility of ascending urinary tract infection. Bilateral cystic renal masses, probably benign cystic masses.
Mild dilation of the distal ureters bilaterally. Mild dilation of the left renal pelvis and calyces. No evidence for ureteral calculus.
Thickening of the wall the rectum with stranding of the perirectal fat, findings suggestive of proctitis, possibly stercoral proctitis. No evidence for perforation. No evidence for bowel obstruction or free intraperitoneal air.
Cholelithiasis. No CT findings to suggest acute cholecystitis.
Mild dilation of the right common iliac artery, with diameter of 15.2 mm.
Examination limited by motion artifact, especially involving the lower chest and upper abdomen. Bony degenerative changes as described.
PLAN:
# DEEDEE�prerenal. Suspected CKD
Creatinine 3.4 on admission. Downtrended to 2.3 on 04/22/25. Baseline creatinine unknown as no prior labs in this EMR. Family does not know baseline creatinine
� Hypotonic fluids discontinued after sodium returned to normal
� NSS 1 L at 100 mL/h, given creatinine elevated and patient is not eating (sleeping)
Nephrology consulted
� Okay with normal saline. Encourage oral intake
� Daily labs
� Renal dose medications appropriate for GFR
Considering calling prior SNF for baseline kidney function/history of CKD
# Hypernatremia secondary to hypovolemia
EKG shows no abnormalities
CT A/P noncontrast: Thickened and trabeculated bladder suggesting outlet obstruction or cystitis. Perinephric fat stranding, possibly ascending UTI. Perirectal fat stranding suggesting proctitis, possibly stercoral. Cholelithiasis
Bladder scan protocol 515, 400 straight-cathed. Harvey placed
Calculated 3.6L free water deficit on admission
- Hypotonic 1/2 (0.45%) saline at increased rate to 150 mL/h, since sodium has not decreased. Switched to D5W at 100 mL/h on 04/23/2025
- Monitor Na for goal correction rate of 10 (<12) mEq per 24 hours
� NA 137 normalized 04/23/2025 evening. Hypotonic IV fluids stopped.
# Urinary tract infection
UTI on urinalysis
Urine culture�greater than 100,000 colonies of Aerococcus species (gram-positive; no susceptibility testing available). 80,000 colonies presumed Enterococcus
- Ceftriaxone 1 g IV every 24 hours 04/21/2025�106/24/24. Switched to ampicillin 1 g IV every 12 hours 04/24/25 after urine culture notification
#Yellow eye discharge and hyperemia
� Erythromycin ophthalmic solution 3 times daily
# Severe hyperkalemia�resolved
Potassium 5.7 on admission
- Calcium gluconate, Lokelma given
Potassium decreased to 4.9
� Continue to monitor
� Continue sodium bicarb 325 mg p.o. twice daily for metabolic acidosis and hyperkalemia, pending nephrology recommendations
# Ambulatory dysfunction/multiple falls
# Right hip tenderness
Right hip x-ray negative for acute fracture or dislocation
CT head: No evidence of acute intracranial abnormality
� PT recommended SNF
� OT recommended 24-hour care
#Anemia
Hb 12.3 on admission, down to 10.8.
Due to hemodilution, as plts also decreasing. Hemoconcentrated on admission, as hypovolemic
#Pseudo-Hypocalcemia
Calcium 8.2 on 04/24/25. Albumin 2.7. Corrected calcium 9.2 normal
# Mild hypercalcemia secondary to hypovolemia�resolved
- IV fluids
#Essential hypertension
- Continue metoprolol
#BPH
- Continue tamsulosin
#Anxiety, restlessness, insomnia
- Restarted home sertraline, Seroquel, buspirone
Pt sleeping better after restarting psychotropic meds
Full code
DVT prophylaxis�heparin
Regular diet
Dispo: Patient came from [place]
Spoke with family to provide updates and inquired about SNF preferences
Anticipated Discharge: > 48 hours
Subjective/Interval History
-
Date of Service: April 24, 2025
No acute events overnight. Overnight nurse denied the patient having changes in mental status or other symptoms. Patient was sleeping this morning and arousable to voice.
Objective Data
-
Labs:
Microbiology Results - Entire Visit
04/21/25 17:13 Urine Urine Culture - Preliminary
Enterococcus species
Aerococcus Species
Hematology and Coagulation - Last 24 hours
04/24/25 Range/Units
07:56
WBC 5.3 (4.8-10.8) 10^3/uL
RBC 3.72 L (4.70-6.10) 10^6/uL
Hgb 10.7 L (13.0-18.0) g/dL
Hct 35.6 L (39.0-52.0) %
MCV 95.7 H (80.0-94.0) fL
MCH 28.8 (27.0-31.0) pg
MCHC 30.1 L (33.0-37.0) g/dL
RDW 14.8 H (11.5-14.5) %
Plt Count 191 (130-400) 10^3/uL
MPV 11.5 H (7.4-10.4) fL
Blood Gas and Chemistry - Last 24 hours
04/23/25 04/24/25 Range/Units
23:04 07:56
Sodium 137 D 140 (135-145) mmol/L
Potassium 4.1 4.1 (3.5-5.1) mmol/L
Chloride 111 H 109 H (98-107) mmol/L
Carbon Dioxide 26 26 (22-30) mmol/L
BUN 28 H 23 H (9-20) mg/dl
Creatinine 2.4 H 2.3 H (0.7-1.3) mg/dL
Estimated Creat Clear 19 20 ml/min
eGFR 25.96 27.32
Glucose 107 H 99 (70-99) mg/dl
Calcium 8.1 L 8.2 L (8.4-10.2) mg/dl
Albumin 2.7 L (3.5-5.0) g/dl
Other lab results - Last 24 hours
04/21/25 Range/Units
17:13
Urine Color Yellow
Urine Clarity Cloudy (Clear)
Urine pH 7.0 (5.0-9.0)
Ur Specific [place] 1.005 (<1.030)
Urine Ketones Negative (Negative)
Ur Occult Blood Reflex 3+ A (Negative)
Urine Nitrite (Reflex) Negative (Negative)
Urine Bilirubin Negative (Negative)
Urine Urobilinogen Negative (Neg - 1+)
Leukocyte Esterase Rfl 3+ A (Negative)
Urine RBC 7-10 A (0-2) /HPF
Urine WBC (Reflex) >100 A (0-5) /HPF
Ur Squamous Epith Cells 0-2 (Few) /LPF
Urine Bacteria (Reflex) Many A (Negative)
Urine Glucose Negative (Negative)
Urine Albumin (Reflex) 2+ A (Neg - Trace)
Vital Signs:
Vital Signs
Temp Pulse Resp BP Pulse Ox
97.5 F 68 16 132/108 97
04/24/25 00:12 04/24/25 07:40 04/24/25 07:40 04/24/25 07:40 04/24/25 07:40
I&O
04/23/25 04/24/25 04/25/25
06:59 06:59 06:59
Intake Total 2240 / 2240 1180 / 1180
Output Total 1325 / 1325 1850 / 1850
Balance 915 / 915 -670 / -670
Review of Systems
-
History Source: Patient
All other systems: Reviewed and negative
Physical Exam
-
General: Well Developed, No Apparent Distress, Comfortable, Conversant and Cachectic
HEENT: Normocephalic, Atraumatic, Nose Appears Normal, Ears Appear Normal and Other (Yellow eye crusting, but decreased from prior, likely from washing)
Respiratory: Clear to Auscultation
Cardiac: Regular Rhythm and S1/S2
GI: Soft, Nontender, Nondistended and Normal Bowel Sounds
Musculoskeletal: No Clubbing, No Cyanosis, No Edema and Other (Ecchymoses)
Skin: Warm and Dry
Neuro: Awake and Alert
Psych: Calm
[2025-04-24 09:37] LABS: Blood Urea Nitrogen 23 mg/dl (9-20); Calcium 8.2 mg/dl (8.4-10.2); Carbon Dioxide 26 mmol/L (22-30); Chloride 109 mmol/L (98-107); Estimated Creatinine Clearance 20 ml/min; Glucose 99 mg/dl (70-99); Potassium 4.1 mmol/L (3.5-5.1); Sodium 140 mmol/L (135-145); eGFR 27.32
[2025-04-24 09:50] LABS: Albumin 2.7 g/dl (3.5-5.0)
[2025-04-24] MEDS: FLOMAX 0.4 MG PO (09:58)
[2025-04-24] MEDS: VISBIOME 1 CAP PO (09:58)
[2025-04-24] MEDS: LOPRESSOR 25 MG PO ×2 (09:58→21:32)
[2025-04-24] MEDS: OSCAL CAL 500 500 MG PO ×2 (09:58→21:32)
[2025-04-24] MEDS: SEROQUEL 25 MG PO ×3 (09:58→21:33)
[2025-04-24] MEDS: FEOSOL 325 MG PO (09:58)
[2025-04-24] MEDS: SODIUM BICARBONATE 325 MG PO ×2 (09:59→21:32)
[2025-04-24] MEDS: BUSPAR 5 MG PO ×2 (10:00→21:31)
[2025-04-24] MEDS: IMODIUM 2 MG PO ×3 (10:00→21:33)
[2025-04-24] MEDS: ZOLOFT 50 MG PO ×2 (10:00→21:33)
[2025-04-24] MEDS: LAC HYDRIN, AM LACTIN LOTION 1 APPLIC TOPICAL ×2 (10:01→21:32)
[2025-04-24] MEDS: HEPARIN 5000 UNITS SC ×2 (10:01→21:31)
--- NOTE | 2025-04-24 14:17 | W.CON.NEPH ---
Consultation
-
Date/Time Consultation Requested: April 23, 2025 9 AM
Date/Time Consultation Performed: April 23, 2025 1 PM
Requesting Provider: Kenzie Reyna
Performing Provider: Dr. Martinez
Reason for Consultation: Hypernatremia a DEEDEE
Medical History
-
Chief Complaint: Hyponatremia
History of Present Illness:
84-year-old male past medical history of Alzheimer's dementia, anxiety, hypertension, suspected CKD anemia of chronic disease, presenting from assisted living at [facility] in [facility] after multiple falls recently. There is concern from family
that he was not receiving appropriate level of care. History cannot be obtained from patient due to dementia. He denies pain.
Renal consult for hypernatremia and acute on chronic kidney disease
Consult performed yesterday at note finalized on 04/24
Past Medical History
history of Alzheimer's dementia, anxiety, hypertension, suspected CKD anemia of chronic disease,
Social History
Tobacco: Non-Smoker
Alcohol: None
Family History
Family History: Not Pertinent
Allergies / Home Medications
Allergy/AdvReac Type Severity Reaction Status Date / Time
No Known Allergies Allergy Unverified 04/21/25 18:08
�Medication �Instructions �Recorded �Confirmed �Type
Lactobac no.2-Bifidobac no.1-S. 1 cap PO DAILY Supplement 04/21/25 04/21/25 History
thermo 112.5 billion cell capsule
(Visbiome)
acetaminophen 325 mg tablet 650 mg PO Q6HPRN PRN fever 04/21/25 04/21/25 History
ammonium lactate 12 % lotion 1 applic topical BID dry skin 04/21/25 04/21/25 History
buspirone 5 mg tablet 5 mg PO BID Antianxiety Agent 04/21/25 04/21/25 History
calcium carbonate 600 mg PO BID Supplement 04/21/25 04/21/25 History
ferrous sulfate 325 mg (65 mg 325 mg PO DAILY Supplement 04/21/25 04/21/25 History
iron) tablet (FeroSul)
loperamide 2 mg capsule 2 mg PO TID DIARRHEA 04/21/25 04/21/25 History
melatonin 5 mg tablet 5 mg PO HS Sleep 04/21/25 04/21/25 History
metoprolol tartrate 25 mg tablet 25 mg PO BID Blood Pressure 04/21/25 04/21/25 History
quetiapine 25 mg tablet 25 mg PO TID Mental Health/Anxiety 04/21/25 04/21/25 History
sertraline 50 mg tablet 50 mg PO DAILY Mental 04/21/25 04/21/25 History
Health/Anxiety
sodium bicarbonate 325 mg tablet 325 mg PO BID ALKALINIZER 04/21/25 04/21/25 History
tamsulosin 0.4 mg capsule 0.4 mg PO DAILY Urinary Issue 04/21/25 04/21/25 History
Review of Systems
-
No chest pain or shortness of breath baseline
Unable to obtain full review of systems at this time due to: Dementia
Physical Exam
Vital Signs
Vital Signs
Temp Pulse Resp BP Pulse Ox
97.5 F 68 16 132/108 97
04/24/25 00:12 04/24/25 07:40 04/24/25 07:40 04/24/25 07:40 04/24/25 07:40
Lab Results
WBC 5.3 10^3/uL (4.8-10.8) 04/24/25 07:56
RBC 3.72 10^6/uL (4.70-6.10) L 04/24/25 07:56
Hgb 10.7 g/dL (13.0-18.0) L 04/24/25 07:56
Hct 35.6 % (39.0-52.0) L 04/24/25 07:56
Plt Count 191 10^3/uL (130-400) 04/24/25 07:56
Sodium 140 mmol/L (135-145) 04/24/25 07:56
Potassium 4.1 mmol/L (3.5-5.1) 04/24/25 07:56
Chloride 109 mmol/L (98-107) H 04/24/25 07:56
Carbon Dioxide 26 mmol/L (22-30) 04/24/25 07:56
BUN 23 mg/dl (9-20) H 04/24/25 07:56
Creatinine 2.3 mg/dL (0.7-1.3) H 04/24/25 07:56
eGFR 27.32 04/24/25 07:56
Glucose 99 mg/dl (70-99) 04/24/25 07:56
Calcium 8.2 mg/dl (8.4-10.2) L 04/24/25 07:56
Albumin 2.7 g/dl (3.5-5.0) L 04/24/25 07:56
Physical Exam
General no acute distress
HEENT no cephalic atraumatic extraocular muscle intact no scleral icterus no JVD neck supple
lungs clear to auscultation bilateral
heart regular S1-S2 positive
abdomen soft nontender positive bowel sounds
extremities no edema pulses present bilateral
Neurologically nonfocal alert and oriented x 3
Skin no lesions no abrasions no petechiae
Psych normal affect no bizarre behavior
Data Reviewed
-
Labs: Labs Reviewed by me and Discussed with Nurse
Assessment/Plan
-
84-year-old male past medical history of Alzheimer's dementia, anxiety, hypertension, suspected CKD anemia of chronic disease, presenting from assisted living at [facility] in [facility] after multiple falls recently. There is concern from family
that he was not receiving appropriate level of care. History cannot be obtained from patient due to dementia. He denies pain.
Renal consult for hypernatremia and a acute on chronic kidney disease
Impression
Hypernatremia decreased free water access
Acute on chronic kidney disease creatinine at 3.4 on admission down to 2.8 on consultation/unknown baseline
Dementia
Severe
Plan.
D5W free water replete
Daily lab
Encourage p.o. intake
Rule out obstructive uropathy
Renal dose all medications appropriate for GFR
--- NOTE | 2025-04-24 14:22 | W.PN.NEPH.PH ---
Today's Communication / Plan
-
Normal saline
Assessment/Plan
-
84-year-old male past medical history of Alzheimer's dementia, anxiety, hypertension, suspected CKD anemia of chronic disease, presenting from assisted living at [facility] in [facility] after multiple falls recently. There is concern from family
that he was not receiving appropriate level of care. History cannot be obtained from patient due to dementia. He denies pain.
Renal consult for hypernatremia and a acute on chronic kidney disease
Impression
Hypernatremia decreased free water access
Acute on chronic kidney disease creatinine at 3.4 on admission down to 2.8 on consultation/unknown baseline
Dementia
Severe
Plan.
Discontinue
Daily lab
Encourage p.o. intake
Okay with normal saline
Renal dose all medications appropriate for GFR
Discussed with primary team
-
-
Date of Service: April 24, 2025
CC / HPI / ROS
-
Chief Complaint:
Hyponatremia DEEDEE
History of Present Illness:
Patient presented with elevated sodium and DEEDEE with family concern patient not appropriately taking care
Review of Systems:
Patient is demented but no chest pain or shortness of breath
Labs
-
Labs:
WBC 5.3 10^3/uL (4.8-10.8) 04/24/25 07:56
RBC 3.72 10^6/uL (4.70-6.10) L 04/24/25 07:56
Hgb 10.7 g/dL (13.0-18.0) L 04/24/25 07:56
Hct 35.6 % (39.0-52.0) L 04/24/25 07:56
Plt Count 191 10^3/uL (130-400) 04/24/25 07:56
Sodium 140 mmol/L (135-145) 04/24/25 07:56
Potassium 4.1 mmol/L (3.5-5.1) 04/24/25 07:56
Chloride 109 mmol/L (98-107) H 04/24/25 07:56
Carbon Dioxide 26 mmol/L (22-30) 04/24/25 07:56
BUN 23 mg/dl (9-20) H 04/24/25 07:56
Creatinine 2.3 mg/dL (0.7-1.3) H 04/24/25 07:56
eGFR 27.32 04/24/25 07:56
Glucose 99 mg/dl (70-99) 04/24/25 07:56
Calcium 8.2 mg/dl (8.4-10.2) L 04/24/25 07:56
Albumin 2.7 g/dl (3.5-5.0) L 04/24/25 07:56
Physical Exam
-
Vital Signs:
Vital Signs
Temp Pulse Resp BP Pulse Ox
97.5 F 68 16 132/108 97
04/24/25 00:12 04/24/25 07:40 04/24/25 07:40 04/24/25 07:40 04/24/25 07:40
Respiratory:: Bilateral: CTA
Lung Excursion:: Normal
Abdomen:: Soft
Bowel Sounds:: Normal
Extremity Edema:: None: Bilateral:
[2025-04-24 15:06] VITALS: BP 109/57
[2025-04-24] MEDS: ERYTHROMYCIN 0.5% OPHTHALMIC OINTMENT 1 APPLIC OPHTH ×3 (15:57→21:33)
[2025-04-24] MEDS: NSS 1000 IV (15:58)
[2025-04-24] MEDS: AMPICILLIN 104 MG IV (16:01)
--- NOTE | 2025-04-24 16:20 | CM ---
CM spoke at length with daughter and her complaints about personal care location patient had been in. Daughter requesting patient return to [facility], CM sent referral to SNF. CM called to facility and left message for admissions liaison to
update her. CM will continue to follow for discharge planning needs.
plan; pending bed availability SNF
[2025-04-24 17:25] VITALS: BMI 18.8
--- NOTE | 2025-04-24 20:10 | PTCARENOTE ---
Pt noted more alert, talkative, and able to follow commands better than previous HS. Pleasantly confused.
[2025-04-24] MEDS: MELATONIN 5 MG PO (21:33)
[2025-04-24 23:31] VITALS: BP 97/52
[2025-04-25] MEDS: NSS 1000 IV (04:01)
[2025-04-25] MEDS: AMPICILLIN 104 MG IV (04:02)
[2025-04-25 07:45] VITALS: BP 141/73
--- NOTE | 2025-04-25 08:06 | W.PN.HOSP.TC ---
Addendum entered and electronically signed by Selin Levin MD 04/25/25 18:10:
I saw and evaluated the patient independently. I reviewed and discussed the resident�s note and agree with findings and plan as documented by Dr. Peter.
GENERAL: cachectic male in no apparent distress--pleasant
HEENT: NC/AT
HEART: regular rate and rhythm, +S1, +S2
LUNGS : clear to auscultation bilaterally
ABDOM: soft, nontender, nondistended, + bowel sounds
EXT: no cyanosis, clubbing, or edema
NEUROLOGIC: appears demented
: harvey cath with clear urine
DEEDEE-�likely prerenal on suspected CKD with some element of post renal requiring harvey cath--creat 3.4 on admission--improving to 2.0 but baseline creat unknown--CT scan abdomen/pelvis without contrast shows Thickened and trabeculated bladder
suggesting outlet obstruction or cystitis. Perinephric fat stranding, possibly ascending UTI--harvey placed--urine culture with Enterococcus and Aerococcus, rocephin changed to Ampicillin on 04/24 (abx started 04/22) and to Augmentin for d/c to
complete course--keep harvey at d/c and do TOV at [facility]
Hypernatremia secondary to hypovolemia--improved--apprec renal consult--follow sodium
Severe hyperkalemia�resolved--no EKG changes on admission--s/p calcium gluconate, lokelma--resolved--pt on sodium bicarbonate as outpt to help with metabolic acidosis
Ambulatory dysfunction/multiple falls with Right hip tenderness--x-ray negative--head CT neg--PT/OT
Mild hypercalcemia secondary to hypovolemia�resolved-- IV fluids
Essential hypertension- Continue metoprolol
BPH- Continue tamsulosin
Yellow eye discharge and hyperemia� Erythromycin ophthalmic solution 3 times daily
Dementia and anxiety-- Restarted sertraline, Seroquel, buspirone as patient seemed delirious and not sleeping
code status--Full code
DVT proph-�sc heparin
04/24/25 Dr. Peter and Mary Conn () spoke with daughter, gave clinical update and spoke about d/c plans
Original Note:
Today's Communication/Plan
-
Bowel regimen given moderate stool burden that is not resolving.
Discharged on Augmentin 500 mg p.o. twice daily for 6 days, bowel regimen, and Harvey in place. Provided instructions for SNF to perform trial of void
Assessment / Plan
Assessment / Plan
IMPRESSION:
Mr. Peña Fontanez is a 84-year-old male with PMH notable for Alzheimer's dementia, anxiety, hypertension, suspected CKD, anemia of chronic disease, who presented from [facility] [place] recently. Family was
concerned that he was not receiving appropriate level of care. History cannot be obtained from patient due to dementia. He denies pain.
CT abdomen pelvis noncontrast:
Urinary bladder is distended. Diffusely thickened and trabeculated wall. This would suggest bladder outlet obstruction and/or cystitis.
Stranding of the perinephric fat bilaterally, nonspecific but raising the possibility of ascending urinary tract infection. Bilateral cystic renal masses, probably benign cystic masses.
Mild dilation of the distal ureters bilaterally. Mild dilation of the left renal pelvis and calyces. No evidence for ureteral calculus.
Thickening of the wall the rectum with stranding of the perirectal fat, findings suggestive of proctitis, possibly stercoral proctitis. No evidence for perforation. No evidence for bowel obstruction or free intraperitoneal air.
Cholelithiasis. No CT findings to suggest acute cholecystitis.
Mild dilation of the right common iliac artery, with diameter of 15.2 mm.
Examination limited by motion artifact, especially involving the lower chest and upper abdomen. Bony degenerative changes as described.
PLAN:
# DEEDEE�prerenal. Suspected CKD
Creatinine 3.4 on admission. Downtrended to 2.3 on 04/22/25. Baseline creatinine unknown as no prior labs in this EMR. Family does not know baseline creatinine
� Hypotonic fluids discontinued after sodium returned to normal
� NSS 1 L at 100 mL/h, given creatinine elevated and patient is not eating (sleeping)
Nephrology consulted
� Okay with normal saline. Encourage oral intake
� Daily labs
� Renal dose medications appropriate for GFR
Considering calling prior SNF for baseline kidney function/history of CKD
# Hypernatremia secondary to hypovolemia�resolved
EKG shows no abnormalities
CT A/P noncontrast: Thickened and trabeculated bladder suggesting outlet obstruction or cystitis. Perinephric fat stranding, possibly ascending UTI. Perirectal fat stranding suggesting proctitis, possibly stercoral. Cholelithiasis
Bladder scan protocol 515, 400 straight-cathed. Harvey placed
Calculated 3.6L free water deficit on admission
- Hypotonic 1/2 (0.45%) saline at increased rate to 150 mL/h, since sodium has not decreased. Switched to D5W at 100 mL/h on 04/23/2025
- Monitor Na for goal correction rate of 10 (<12) mEq per 24 hours
� NA 137 normalized 04/23/2025 evening. Hypotonic IV fluids stopped.
# Urinary tract infection
UTI on urinalysis
Urine culture�greater than 100,000 colonies of Aerococcus species (gram-positive; no susceptibility testing available). 80,000 colonies presumed Enterococcus, sensitive to ampicillin
- Ceftriaxone 1 g IV every 24 hours 04/21/2025�106/24/24. Switched to ampicillin 1 g IV every 12 hours 04/24/25 after urine culture notification. Discharged on p.o. Augmentin 500 mg twice daily for 6 days to finish a 7-day course that covers the urine
pathogens
#Constipation
CT abdomen pelvis 04/21/2025: Thickening of the wall the rectum with stranding of the perirectal fat, findings suggestive of proctitis, possibly stercoral proctitis. No evidence for perforation. No evidence for bowel obstruction or free
intraperitoneal air.
Abdominal x-ray 04/24/2025: Moderate volume colonic stool, most prominent in the sigmoid colon and rectum.
� Bowel regimen: MiraLAX 17 g daily, Senokot 1 tablet p.o. twice daily, bisacodyl 10 mg rectal daily as needed
#Yellow eye discharge and hyperemia
� Erythromycin ophthalmic solution 3 times daily
# Severe hyperkalemia�resolved
Potassium 5.7 on admission
- Calcium gluconate, Lokelma given
Potassium decreased to 4.9
� Continue sodium bicarb 325 mg p.o. twice daily for metabolic acidosis and hyperkalemia, pending nephrology recommendations
# Ambulatory dysfunction/multiple falls
# Right hip tenderness
Right hip x-ray negative for acute fracture or dislocation
CT head: No evidence of acute intracranial abnormality
� PT recommended SNF
� OT recommended 24-hour care
#Anemia
Hb 12.3 on admission, down to 10.8.
Due to hemodilution, as plts also decreasing. Hemoconcentrated on admission, as hypovolemic
#Pseudo-Hypocalcemia
Calcium 8.2 on 04/24/25. Albumin 2.7. Corrected calcium 9.2 normal
# Mild hypercalcemia secondary to hypovolemia�resolved
- IV fluids
#Essential hypertension
- Continue metoprolol
#BPH
- Continue tamsulosin
#Anxiety, restlessness, insomnia
- Restarted home sertraline, Seroquel, buspirone
Pt sleeping better after restarting psychotropic meds
Full code
DVT prophylaxis�heparin
Regular diet
Dispo: Patient came from [place]
Spoke with family to provide updates and inquired about SNF preferences
Anticipated Discharge: Today
Subjective/Interval History
-
Date of Service: April 25, 2025
No acute events overnight. Patient was awake this morning and responded to questions, although his responses were always on topic. He denied any complaint
Objective Data
-
Labs:
Microbiology Results - Entire Visit
04/21/25 17:13 Urine Urine Culture - Final
Enterococcus faecalis
Aerococcus Species
Hematology and Coagulation - Last 24 hours
04/25/25 Range/Units
07:23
WBC 4.8 (4.8-10.8) 10^3/uL
RBC 3.96 L (4.70-6.10) 10^6/uL
Hgb 11.7 L (13.0-18.0) g/dL
Hct 36.4 L (39.0-52.0) %
MCV 91.9 (80.0-94.0) fL
MCH 29.5 (27.0-31.0) pg
MCHC 32.1 L (33.0-37.0) g/dL
RDW 14.4 (11.5-14.5) %
Plt Count 195 (130-400) 10^3/uL
MPV 11.6 H (7.4-10.4) fL
Blood Gas and Chemistry - Last 24 hours
04/25/25 Range/Units
07:23
Sodium 136 (135-145) mmol/L
Potassium 4.1 (3.5-5.1) mmol/L
Chloride 109 H (98-107) mmol/L
Carbon Dioxide 25 (22-30) mmol/L
BUN 22 H (9-20) mg/dl
Creatinine 2.0 H (0.7-1.3) mg/dL
Estimated Creat Clear 23 ml/min
eGFR 32.30
Glucose 78 (70-99) mg/dl
Calcium 8.3 L (8.4-10.2) mg/dl
Vital Signs:
Vital Signs
Temp Pulse Resp BP Pulse Ox
97.9 F 57 16 97/52 94
04/24/25 23:31 04/24/25 23:31 04/24/25 23:31 04/24/25 23:31 04/24/25 23:31
I&O
04/24/25 04/25/25 04/26/25
06:59 06:59 06:59
Intake Total 1180 / 1180 1684 / 1684
Output Total 1850 / 185 2250 / 2249
Balance -670 / -670 -566 / -566
Review of Systems
-
Unable to obtain full review of systems at this time due to: Dementia
Physical Exam
-
General: Well Developed, Well Nourished, No Apparent Distress, Comfortable, Conversant and Cachectic
HEENT: Normocephalic, Atraumatic, Anicteric, [place] Conjunctivae (Yellow crusting at right eye), No Ptosis, Nose Appears Normal and Ears Appear Normal
Respiratory: Clear to Auscultation
Cardiac: Regular Rhythm and S1/S2
GI: Soft, Nontender, Nondistended, Normal Bowel Sounds and Flat
Musculoskeletal: No Clubbing, No Cyanosis and No Edema
Skin: Warm and Dry
Neuro: Awake and Alert
Psych: Calm
[2025-04-25 08:20] LABS: Hematocrit 36.4 % (39.0-52.0); Hemoglobin 11.7 g/dL (13.0-18.0); Mean Corp Hgb Conc. 32.1 g/dL (33.0-37.0); Mean Corpuscular Volume 91.9 fL (80.0-94.0); Platelet Count 195 10^3/uL (130-400); Red Cell Dist. Width 14.4 % (11.5-14.5)
[2025-04-25] MEDS: SENOKOT-S 1 TABLET PO (08:45)
[2025-04-25] MEDS: HEPARIN 5000 UNITS SC (08:45)
[2025-04-25] MEDS: FLOMAX 0.4 MG PO (08:45)
[2025-04-25] MEDS: BUSPAR 5 MG PO (08:45)
[2025-04-25] MEDS: FEOSOL 325 MG PO (08:45)
[2025-04-25] MEDS: VISBIOME 1 CAP PO (08:45)
[2025-04-25] MEDS: MIRALAX 17 GRAMS PO (08:45)
[2025-04-25] MEDS: OSCAL CAL 500 500 MG PO (08:45)
[2025-04-25] MEDS: ERYTHROMYCIN 0.5% OPHTHALMIC OINTMENT 1 APPLIC OPHTH ×3 (08:46→18:17)
[2025-04-25] MEDS: SEROQUEL 25 MG PO ×2 (08:53→18:17)
[2025-04-25] MEDS: SODIUM BICARBONATE 325 MG PO (08:53)
[2025-04-25] MEDS: LOPRESSOR 25 MG PO (08:53)
[2025-04-25] MEDS: LAC HYDRIN, AM LACTIN LOTION 1 APPLIC TOPICAL (08:54)
[2025-04-25] MEDS: IMODIUM PO (08:57)
[2025-04-25 09:09] LABS: Blood Urea Nitrogen 22 mg/dl (9-20); Calcium 8.3 mg/dl (8.4-10.2); Carbon Dioxide 25 mmol/L (22-30); Chloride 109 mmol/L (98-107); Estimated Creatinine Clearance 23 ml/min; Glucose 78 mg/dl (70-99); Potassium 4.1 mmol/L (3.5-5.1); Sodium 136 mmol/L (135-145); eGFR 32.30
--- NOTE | 2025-04-25 12:36 | CM ---
Addendum entered by Mary Conn 04/25/25 16:02:
ambulance 6:30 CM called to family with updated time
Original Note:
Patient seen at bedside with physicians. patient accepted to return to [facility] and call report to [phone]/fax [phone]. CM called and left for admissions. CM spoke with patient contact David and left for patient
daughter as requested. CM reviewed IMM form and copy left in room as well and verbally reviewed. CM will continue to follow for discharge planning needs.
Plan; [facility]
--- NOTE | 2025-04-25 15:17 | PTCARENOTE ---
Report given to Simin at [facility]
--- NOTE | 2025-04-25 15:47 | W.PN.NEPH.PH ---
Today's Communication / Plan
-
follow BMP
Assessment/Plan
-
84-year-old male past medical history of Alzheimer's dementia, anxiety, hypertension, suspected CKD anemia of chronic disease, presenting from assisted living at [place] in [facility] after multiple falls recently. There is concern from family
that he was not receiving appropriate level of care. History cannot be obtained from patient due to dementia. He denies pain.
Renal consult for hypernatremia and a acute on chronic kidney disease
Impression
Hypernatremia decreased free water access
Acute on chronic kidney disease creatinine at 3.4 on admission down to 2.8 on consultation/unknown baseline
Dementia
Severe
Plan.
follow BMP in house without IVF
IF he becomes hypernatremia, then would need to consider PEG or hospice
-
-
Date of Service: April 25, 2025
CC / HPI / ROS
-
Chief Complaint:
Hyponatremia DEEDEE
History of Present Illness:
Na normal at [address], nonoliguric
BP stable
Review of Systems:
Patient is demented but no chest pain or shortness of breath
Labs
-
Labs:
WBC 4.8 10^3/uL (4.8-10.8) 04/25/25 07:23
RBC 3.96 10^6/uL (4.70-6.10) L 04/25/25 07:23
Hgb 11.7 g/dL (13.0-18.0) L 04/25/25 07:23
Hct 36.4 % (39.0-52.0) L 04/25/25 07:23
Plt Count 195 10^3/uL (130-400) 04/25/25 07:23
Sodium 136 mmol/L (135-145) 04/25/25 07:23
Potassium 4.1 mmol/L (3.5-5.1) 04/25/25 07:23
Chloride 109 mmol/L (98-107) H 04/25/25 07:23
Carbon Dioxide 25 mmol/L (22-30) 04/25/25 07:23
BUN 22 mg/dl (9-20) H 04/25/25 07:23
Creatinine 2.0 mg/dL (0.7-1.3) H 04/25/25 07:23
eGFR 32.30 04/25/25 07:23
Glucose 78 mg/dl (70-99) 04/25/25 07:23
Calcium 8.3 mg/dl (8.4-10.2) L 04/25/25 07:23
Albumin 2.7 g/dl (3.5-5.0) L 04/24/25 07:56
Physical Exam
-
Vital Signs:
Vital Signs
Temp Pulse Resp BP Pulse Ox
97.2 F 68 18 141/73 93
04/25/25 07:45 04/25/25 07:45 04/25/25 07:45 04/25/25 08:53 04/25/25 07:45
Cardiovascular:: Regular rate and rhythm
Respiratory:: Bilateral: Coarse
Lung Excursion:: Normal
Abdomen:: Nontender and Soft
Bowel Sounds:: Normal
Extremity Edema:: None: Bilateral:
--- NOTE | 2025-04-25 16:34 | W.DCSUMMARY ---
Addendum entered and electronically signed by Selin Levin MD 04/25/25 18:12:
Read, reviewed, and agree. See same day progress note for additional details. Time spent coordinating care, DC planning, review of DC plan of care with resident, transition of care, review of records in EMR, med rec, consults, notes, d/w
consultants, nursing, family, and CM = 45 minutes
Original Note:
Discharge Summary
Discharge Data
Date of Admission: 04/21/25
Date of Discharge: 04/25/25
Total time spent discharging patient (in min): 45
-
Pending Results: No
Hospital Course
Discharging Physician : Dr. Levin and Dr. Peter
Disposition : [facility]
Primary care physician : Estephanie Aguilera
Principal Discharge diagnosis : Hypernatremia
DEEDEE, UTI, conjunctivitis
Chronic Discharge diagnosis : Dementia, CKD, constipation, BPH, anxiety, insomnia
Hospital Course :
Mr. Peña Fontaenz is a 84-year-old male with PMH notable for Alzheimer's dementia, anxiety, hypertension, suspected CKD, anemia of chronic disease, who [place] [facility] [place] Family was
concerned that he was not receiving appropriate level of care. History could not be obtained from patient due to dementia. He denied pain.
Problem #1: Hypernatremia and DEEDEE due to dehydration
He presented with a creatinine of 3.4, sodium of 156, potassium of 5.7, and calcium of 10.3. Calcium gluconate and Lokelma were given for the hyperkalemia. EKG demonstrated normal sinus rhythm. His potassium and calcium normalized with hydration
with hypotonic fluid (half-normal saline). Since his sodium remained the same, the hypotonic fluid was run at an increased rate, and then switched to D5W, after which his sodium responded and normalized. His fluids were switched to normal saline,
because his creatinine was above normal and his baseline creatinine was not known, due to no prior labs in this EMR for him. The creatinine decreased to 2.3. Family did not know his baseline renal function. His prior SNF was called multiple times
and nursing did not scrap picker. He is suspected to have chronic kidney disease. Nephrology recommended hospice or PEG tube placement if he becomes hypernatremic in the future.
Problem #2: Urinary tract infection
Urine culture grew greater than 100,000 colonies of Aerococcus species (gram-positive; no susceptibility testing available) and 80,000 colonies presumed Enterococcus, sensitive to ampicillin among other antibiotics. Ceftriaxone IV was administered
04/21/2025�106/24/24 and switched to ampicillin 04/24/25 after urine culture identification. He was discharged on p.o. Augmentin 500 mg twice daily for 6 days to finish a 7-day course that covers the urine pathogens.
Problem #3: Constipation
His abdomen was noted to be tympanitic on 04/24/25. Imaging demonstrated moderate volume colonic stool. Imodium was stopped. He was started and discharged on bowel regimen:
Problem #4: Yellow eye discharge and hyperemia
He continued to have yellow eye discharge with crusting that caused his eyelids to remain closed on some days. His eyes have been cleaned by nursing. He was started on an erythromycin ophthalmic solution 3 times daily.
Problem #5: Right hip tenderness
Right hip x-ray was negative for acute fracture or dislocation. Therapy was consulted and the patient worked with therapy
Problem #6: Anxiety, restlessness, insomnia
The patient had insomnia and appeared confused. His sertraline, Seroquel, and buspirone were restarted. He then slept better, was more alert during the daytime, and able to engage in simple conversation.
Important imaging findings :
CT abdomen pelvis noncontrast 04/21/2025
Urinary bladder is distended. Diffusely thickened and trabeculated wall. This would suggest bladder outlet obstruction and/or cystitis.
Stranding of the perinephric fat bilaterally, nonspecific but raising the possibility of ascending urinary tract infection. Bilateral cystic renal masses, probably benign cystic masses.
Mild dilation of the distal ureters bilaterally. Mild dilation of the left renal pelvis and calyces. No evidence for ureteral calculus.
Thickening of the wall the rectum with stranding of the perirectal fat, findings suggestive of proctitis, possibly stercoral proctitis. No evidence for perforation. No evidence for bowel obstruction or free intraperitoneal air.
Cholelithiasis. No CT findings to suggest acute cholecystitis.
Mild dilation of the right common iliac artery, with diameter of 15.2 mm.
Examination limited by motion artifact, especially involving the lower chest and upper abdomen. Bony degenerative changes as described.
Right hip x-ray 04/21/2025
No evidence of acute fracture or dislocation.
CT head 04/21/2025
No evidence of acute intracranial abnormality
Abdominal x-ray 05/15
Moderate volume colonic stool, most prominent in the sigmoid colon and rectum. Please see CT Abdomen and pelvis report April 21, 2025.
Procedure findings : None
Discharge Plan
-
Patient Disposition: Long-Term/SNF
Discharge Diagnosis/Procedures: Hyponatremia
DEEDEE
Suspected CKD
UTI
Conjunctivitis
Dementia
Hyperkalemia
Ambulatory dysfunction
Anemia
Hypertension
BPH
Anxiety
Condition: Fair
Diet: Low Sodium
Activity: With assistance
Driving Restrictions: No driving
Referrals:
Estephanie Aguilera DO [Family Provider, Family Practice]
Additional Discharge Medication Instructions: Please take the antibiotic for 6 more days to complete a 7-day course for the urinary tract infection.
For your eye discharge, we provided an antibiotic/erythromycin ointment to be applied to the eyelids.
When you are constipated, please stop taking loperamide/Imodium, and start a bowel regimen. You were provided MiraLAX for when you are constipated, and the facility can add other agents as they see fit.
What your baseline kidney function is, as we do not have labs prior to this hospital stay. You are returning to a facility that took care of you before, who should know your baseline kidney function, and should monitor your kidney function. Please
try to eat and drink enough to prevent high sodium and kidney injury from dehydration.
It was a pleasure to be part of your care team.
Prescriptions:
New
polyethylene glycol 3350 17 gram Powder In Packet
17 g PO DAILYPRN PRN (Reason: Constipation) Qty: 14 0RF
erythromycin 5 mg/gram (0.5 %) Ointment
0.5 inch ophthalmic (eye) QID Qty: 3.5 0RF
amoxicillin-pot clavulanate [Augmentin] 500-125 mg tablet
1 tab PO BID 6 Days Qty: 12 0RF
Continued
quetiapine 25 mg tablet
25 mg PO TID
buspirone 5 mg tablet
5 mg PO BID
acetaminophen 325 mg tablet
650 mg PO Q6HPRN PRN (Reason: fever)
ammonium lactate 12 % lotion
1 applic TOPICAL BID
Rx Instructions:
B/L arms and legs
sodium bicarbonate 325 mg tablet
325 mg PO BID
calcium carbonate 600 mg calcium (1,500 mg) tablet
600 mg PO BID
tamsulosin 0.4 mg capsule
0.4 mg PO DAILY
ferrous sulfate [FeroSul] 325 mg (65 mg iron) tablet
325 mg PO DAILY
sertraline 50 mg tablet
50 mg PO DAILY
metoprolol tartrate 25 mg tablet
25 mg PO BID
Visbiome 112.5 billion cell Capsule
1 cap PO DAILY
melatonin 5 mg Tablet
5 mg PO HS
Held
loperamide 2 mg capsule
2 mg PO TID
Hold Instructions: Resume on 05/02/25. Hold if constipated
Discharge Orders:
Discharge Patient (As Directed); Ordered 04/25/25
Ordered By: Aysha Peter
Discharge Date and Time
Print Language: SAMI
[2025-04-25 17:38] VITALS: BP 150/71
== END 2025-04-25 19:28 | DRG 682 ==
LOC: 4 WEST ACU 21:43
PROVIDERS: Hospitalist; Physician Assistant; ADMITTING PHYSICIAN Hospitalist; ATTENDING PHYSICIAN Internal Medicine; CONSULT PHYSICIAN Internal Medicine Nephrology; EMERGENCY PHYSICIAN Emergency Medicine; FAMILY PHYSICIAN Family Medicine
DX: N17.9 Acute kidney failure, unspecified (principal); G93.41 Metabolic encephalopathy; E87.0 Hyperosmolality and hypernatremia; N39.0 Urinary tract infection, site not specified; F02.84 Dementia in other diseases classified elsewhere, unspecified severity, with anxiety; F02.818 Dementia in other diseases classified elsewhere, unspecified severity, with other behavioral disturbance; E87.1 Hypo-osmolality and hyponatremia; R64 Cachexia; Z68.1 Body mass index [BMI] 19.9 or less, adult; H10.9 Unspecified conjunctivitis; I12.9 Hypertensive chronic kidney disease with stage 1 through stage 4 chronic kidney disease, or unspecified chronic kidney disease; N18.9 Chronic kidney disease, unspecified; K59.00 Constipation, unspecified; N40.0 Benign prostatic hyperplasia without lower urinary tract symptoms; G47.00 Insomnia, unspecified; E86.1 Hypovolemia; E83.52 Hypercalcemia; D63.1 Anemia in chronic kidney disease; E86.0 Dehydration; E87.5 Hyperkalemia; G30.9 Alzheimer's disease, unspecified; Z79.899 Other long term (current) drug therapy
CPT/HCPCS: 70450; 73502; 74018; 74176; 80048; 80053; 81003; 81015; 82040; 85025; 85027; 87077; 87086; 87186; 93005; 96374; 96375; 97163; 97166; 99285